=== PATIENT | female | born 1965 | race Caucasian/White ===

== ENCOUNTER 2021-06-27 14:50 | Emergency (ER) | payer OTHER, SELFPAY ==
[2021-06-27 14:51] VITALS: BP 175/92; PULSE 90; RESP 17; TEMP 37.1; O2SAT 98; BMI 36.0
--- NOTE | 2021-06-27 15:30 | CT_ITS ---
FINAL REPORT CLINICAL HISTORY: NECK pain-no injury FINDINGS: Axial CT images of the cervical spine were obtained without contrast. Sagittal and coronal reformatted images were also obtained. This study was performed with techniques to keep radiation doses as low as reasonably achievable (ALARA). Individualized dose reduction techniques using automated exposure control or adjustment of mA and/or kV according to the patient''s size were employed. There has been fusion at C5-6. There is no evidence of fracture or dislocation. The bony alignment is normal. There is no evidence of canal stenosis. No paraspinous soft tissue abnormality is seen. Limited images of the upper thorax are unremarkable. C2-3: No significant canal stenosis or neural foraminal narrowing. C3-4: No significant canal stenosis or neural foraminal narrowing. C4-5: There is a small disc osteophyte complex. There is no significant canal stenosis or neural foraminal narrowing. C5-6: There is fusion at this level. There is mild bilateral neural foraminal narrowing. C6-7: There is a disc osteophyte complex. There is moderate bilateral neural foraminal narrowing. C7-T1: No significant canal stenosis or neural foraminal narrowing. IMPRESSION: Postoperative and degenerative changes as detailed above. Reviewed, Interpreted and Dictated by Christopher Disla III, MD Transcribed by Ivy Zaldivar Authenticated by Christopher Disla III, MD on 06/27/2021 04:37:24 PM [facility]
--- NOTE | 2021-06-27 15:30 | CT_ITS ---
FINAL REPORT CLINICAL HISTORY: pain-no injury, HEADACHE FINDINGS: Axial images of the head were obtained without contrast. Coronal reformatted images were also obtained.This study was performed with techniques to keep radiation doses as low as reasonably achievable (ALARA). Individualized dose reduction techniques using automated exposure control or adjustment of mA and/or kV according to the patient's size were employed. There is no evidence of intracranial hemorrhage or mass. The ventricular size is within normal limits. There is no evidence of shift of the midline structures. No abnormal extra axial fluid collection is identified. No skull abnormality is seen on the bone window images. IMPRESSION: No acute intracranial abnormality. Reviewed, Interpreted and Dictated by Christopher Disla III, MD Transcribed by Ivy Zaldivar Authenticated by Christopher Disla III, MD on 06/27/2021 04:37:[address] [facility]
--- NOTE | 2021-06-27 15:52 | [facility].EDGENADL ---
ED Disposition Clinical Impression: Occipital headache, Neck pain Disposition: Home, Self-Care Condition on Discharge: Good Instructions: DI for Headache, DI for Neck Pain Additional Instructions: Continue current medications. [place] as needed for pain. Call your primary care provider tomorrow for further care. Additional instructions for HEADACHE: See your physician as soon as possible for further evaluation. Return immediately if worsening headache, vomiting, problems with vision or speech, fever, numbness or weakness of the extremities, neck pain or stiffness. Additional instructions for NECK PAIN: See your physician as soon as possible for further evaluation. Return immediately if neck pain becomes intolerable, or if fever, numbness or weakness of your arms or legs, loss of control of your bowels or bladder. Additional instructions for CONTROLLED SUBSTANCES: You have been prescribed a medication that is a controlled substance. Controlled substances include pain medications known as opiates and sedative nerve medications known as benzodiazepines. Tramadol, fioricet, and gabapentin are also controlled substances. Some common opiates include: Codeine (such as Tylenol #3) Hydrocodone (Vicodin, Lortab, Lorcet, [place]) Oxycodone (Percocet, Percodan, Oxycodone, Oxy IR) Some common benzodiazepines include: Diazepam (Valium) Lorazepam (Ativan) Alprazolam (Xanax) Clonazepam (Klonopin) Oxazepam (Serax) All of these controlled substances are highly addictive and frequently abused. Misuse can and frequently does lead to addiction as well as overdose and . Medication should be stored in a locked cabinet or other secure storage unit. Do not store the medication in a motor vehicle. Short term supplies, 3 days or less, are prescribed because of the highly addictive nature of the medication. Any of the controlled substance medication NOT taken should be disposed of properly and NOT SAVED. The recommended method of disposing of unused medications is: Place the medicines in a sealable plastic bag. If the medicine is a solid, crush it or add water to dissolve it. Add something undesirable (cat litter, coffee grounds, etc.) Dispose of sealed bag in household trash Do not flush or pour unused medicines down a sink or drain. Controlled substances should not be shared, given away or sold. Because of the addictive nature and frequent abuse, these medications are sometimes stolen. These medications should be kept in a safe place where they cannot be stolen. Do not keep them in your car or purse. Lost or stolen prescriptions for controlled substances WILL NOT BE REFILLED in this emergency department, regardless of whether a police report was filed. Prescriptions: Hydrocod/Acet 5/325 mg [[place] 5/325mg tablet] 1 tab PO Q6HP PRN #8 tab PRN Reason: Pain Transmission Status: Received by [facility] [id number] Referrals: Jcaoby Reyes [Primary Care Provider] - Forms: Work/School Release - Critical Care Critical Care Time: No Attestation: On 06/27/21, the high probability of a clinically significant, sudden or life threatening deterioration of the following system(s) required my full and direct attention, intervention and personal management. The time I documented below is in addition to time spent performing reported procedures but includes the following listed in this critical care notation. Medical Decision Making - Kalpesh Inquiry Pt receiving controlled substance: Yes Kalpesh was queried for this patient: Yes Risks and benefits of using a controlled substance: were discussed with pt by me Vital Signs: 06/27/21 14:51 06/27/21 18:09 Temperature 98.7 F 98.8 F Temperature Source Oral Oral Pulse Rate 87 Pulse Rate [Left Radial] 90 Respiratory Rate 17 17 Blood Pressure 150/87 H Blood Pressure [Right Arm] 175/92 H Blood Pressure Mean [Right Arm] 119 02 Sat by Pulse Oximetry 98 O
[2021-06-27 16:25] LABS: Basophils % 0.1 % (0.1-2.0); Eosinophils # 0.1 K/mm3 (0.0-0.4); Eosinophils % 0.4 % (0.1-12.0); Hematocrit 43.5 % (37.0-47.0); Hemoglobin 14.7 g/dL (12.2-16.2); Lymphocytes # 1.7 K/mm3 (0.7-4.5); Lymphocytes % 8.9 % (10-50); Mean Corpuscular HGB Conc 33.7 g/dL (31.8-35.4); Mean Corpuscular Hemoglobin 29.8 pg (27.0-31.2); Mean Corpuscular Volume 88.6 fl (81-99); Mean Platelet Volume 7.9 fl (7.4-10.4); Monocytes # 0.7 K/mm3 (0.1-1.0); Monocytes % 3.6 % (1.7-9.3); Neutrophils # 16.8 K/mm3 (1.8-7.8); Neutrophils % 86.9 % (37.0-80.0); Platelet Count 330 K/mm3 (142-424); Red Blood Count 4.92 M/mm3 (4.20-5.40); Red Cell Distribution Width 13.6 % (11.5-17.5); White Blood Count 19.3 K/mm3 (4.8-10.8)
[2021-06-27 16:39] LABS: Alanine Aminotransferase 30 U/L (12-78); Albumin Level 4.7 g/dl (3.5-5.0); Albumin/Globulin Ratio 1.5 (1.1-1.8); Alkaline Phosphatase 94 U/L (38-126); Anion Gap 12.9 mEq/L (5-15); Aspartate Amino Transferase 27 U/L (14-36); Bilirubin,Total 0.6 mg/dl (0.2-1.3); Blood Urea Nitrogen 22 mg/dl (7-17); Calcium 9.1 mg/dl (8.4-10.2); Carbon Dioxide 27 mmol/L (22.0-30.0); Chloride 103 mmol/L (98-107); Creatinine Clearance Estimated 89 mL/min (50-200); Estimated Glomerular Filt Rate 57 ml/min (>60); GFR (African American) 69 ML/MIN (>60); Globulin 3.1 g/dL (1.3-3.2); Glucose 119 mg/dl (74-100); Potassium 3.9 mmoL/L (3.5-5.1); Sodium 139 mmol/L (136-145); Total Protein,Serum 7.8 g/dl (6.3-8.2)
[2021-06-27 16:45] LABS: C-Reactive Protein 2.2 mg/L (0-4)
[2021-06-27 17:10] LABS: MANUAL DIFFERENTIAL MANUAL DIFFERENTIAL (MANUAL DIFF)
[2021-06-27 17:30] LABS: Erythrocyte Sedimentation Rate 17 mm/hr (0-30)
[2021-06-27 18:09] VITALS: BP 150/87; PULSE 87; RESP 17; TEMP 37.1; O2SAT 99
[2021-06-27 18:21] LABS: Lymphocytes % 11 % (10-50); Monocytes % 4 % (2-9); Neutrophils % 85 % (42-76); Total Cells Counted 100
[2021-06-27 18:22] LABS: Anisocytosis 1+; Microcytosis 1+; Platelet Estimate Normal
== END 2021-06-27 18:29 | disposition home or self-care (01) ==
PROVIDERS: Emergency Provider Emergency Medicine; PCP Physician Assistant
DX: G44.89 Other headache syndrome (principal); M54.2 Cervicalgia; I10 Essential (primary) hypertension; R26.9 Unspecified abnormalities of gait and mobility
CPT/HCPCS: 70450; 72125; 80053; 85007; 85025; 85651; 86140; 96374; 96375; 99283; 99284; J2405

== ENCOUNTER → 2021-07-08 09:50 | Outpatient (CLI) | payer OTHER, SELFPAY ==
--- NOTE | 2021-07-08 09:56 | MR_ITS ---
FINAL REPORT CLINICAL HISTORY: CERVICAL SPINE PAIN. hx neck surgery 2004. pop in neck t1dmarr ago. pressure in back of neck since with vision problems. prior ct 06-27-21 FINDINGS: Multiplanar MR imaging of the cervical spine was performed without contrast. On the sagittal T2-weighted images, disc degeneration is seen throughout the cervical discs. There has been fusion at C5-6. There is no evidence of fracture. There is mild retrolisthesis of C4 on C5. The cervical spinal cord has an unremarkable appearance without evidence of mass, edema or syrinx. No significant canal stenosis is identified. The cervicomedullary junction is normal. C2-3: There is a small central disc protrusion. There is no significant canal stenosis or neural foraminal narrowing. C3-4: There is a small central disc protrusion. There are uncovertebral osteophytes. There is no significant canal stenosis. There is mild left neuroforaminal narrowing. C4-5: There is an annular bulge present. There is a small central disc protrusion. There is no significant canal stenosis or neural foraminal narrowing. C5-6: There has been fusion at this level. There is no significant canal stenosis or neural foraminal narrowing. C6-7: There is a disc osteophyte complex. There is no significant canal stenosis. There is severe right and moderate left neuroforaminal narrowing. C7-T1: There is no significant canal stenosis or neural foraminal narrowing. IMPRESSION: Multilevel degenerative disc disease. Disc protrusions at C2-3, C3-4, and C4-5. Postoperative changes from fusion at C5-6. Reviewed, Interpreted and Dictated by Christopher Disla III, MD Transcribed by Ivy Zaldivar Authenticated by Christopher Disla III, MD on 07/08/2021 01:13:16 PM [facility]
== END ==
PROVIDERS: PCP Physician Assistant; Visit Provider Physician Assistant
DX: M54.2 Cervicalgia (principal)
CPT/HCPCS: 72141; 76376